=== PATIENT | male | born 1985 | race Caucasian/White ===

== ENCOUNTER 2018-04-17 18:58 | Emergency (ER) | payer OTHER ==
[~2018-04-17] VITALS: Ht 182.9 cm; Wt 95.3 kg
[~2018-04-17 18:58] MED LIST: NORCO 5-325 TA1 EACH PO; PROMETHAZINE12.5 M1 PO
[2018-04-17 19:34] LABS: ABSOLUTE EOSINOPHILS 0.6 thou/uL (0.0-0.7); ABSOLUTE MONOCYTES 0.5 thou/uL (0.0-1.2); ABSOLUTE NEUTROPHILS 5.8 thou/uL (1.6-8.1); BASOPHILS 0.4 %; EOSINOPHILS 6.9 %; HEMATOCRIT 45.7 % (42.0-52.0); HEMOGLOBIN 15.9 gm/dL (14.0-18.0); LYMPHOCYTES 22.5 %; MCH 31.4 pg (26.0-34.0); MCHC 34.7 g/dL (28.0-37.0); MCV 90.5 fL (80.0-100.0); MONOCYTES 5.3 %; MPV 8.4 fl. (7.2-11.1); NUCLEATED RBCS 0 /100WBC; PLATELET COUNT* 292 thou/uL (150-400); POLYS 64.9 %; RBC 5.05 mil/uL (4.50-6.00); RDW-CV 13.3 % (10.5-14.5); WBC 8.9 thou/uL (4.0-11.0)
[2018-04-17 19:41] LABS: ANION GAP 9 mmol/L (7-16); BUN 18 mg/dL (7-18); CALCIUM 8.9 mg/dL (8.5-10.1); CHLORIDE 105 mmol/L (98-107); CO2 28 mmol/L (21-32); CREATININE 1.4 mg/dL (0.6-1.3); GLUCOSE 96 mg/dL (70-99); POTASSIUM 3.3 mmol/L (3.5-5.1); SODIUM 142 mmol/L (136-145)
[2018-04-17 19:53] LABS: ALKALINE PHOSPHATASE 96 U/L (46-116); NT-PRO BRAIN NAT PEPTIDE 69 pg/mL (<300); SGOT 18 U/L (15-37); SGPT 24 U/L (30-65); TOTAL BILIRUBIN 0.6 mg/dL (<0.1-1.0); TOTAL PROTEIN 7.9 g/dL (6.4-8.2); TROPONIN-I LEVEL <0.06 ng/mL (<0.06)
[2018-04-17] MEDS ORDERED: VENTOLIN HFA 1818 GM INH (21:19)
[2018-04-17] MEDS ORDERED: ZPAK PO (21:19)
[2018-04-17 21:31] VITALS: BP 140/89
--- NOTE | 2018-04-18 17:03 | EKG ---
[place] [address] ELECTROCARDIOGRAM REPORT Name: TANG HO Room: [facility]#: [id number] Admission: 04/17/18 Attend Phys: Discharge: 04/17/18 Date of : 81 Report #: [id number] THIS REPORT FOR: //name// [facility] ED Test Date: 2018-04-17 Test Time: 19:08:04 Pat Name: TANG HO Department: Room: Gender: M Integrated Marketing Manager: : 1985 Requested By: Alfred Ba Order Number: [id number] MD: Se Gomez Measurements Intervals [place] Rate: 67 P: 9 [place]: 132 QRS: -25 QRSD: 98 T: 64 QT: 388 QTc: 410 Interpretive Statements Sinus rhythm Borderline left axis deviation Baseline wander in lead(s) II,III,aVF,V1 No previous ECG available for comparison Electronically Signed On 04-18-2018 17:03:34 CDT by Se Gomez [email or web address] <ELECTRONICALLY SIGNED> By: Se Gomez MD, [facility] 04/18/18 1703 07 07 Se Gomez MD, FACC /EPI
== END 2018-04-17 21:32 | disposition home or self-care (01) ==
LOC: M.ERS 18:58
PROVIDERS: Emergency Medicine Emergency Medical Services
DX: J40 Bronchitis, not specified as acute or chronic (principal); Z87.891 Personal history of nicotine dependence; Z88.8 Allergy status to other drugs, medicaments and biological substances; Z91.012 Allergy to eggs

== ENCOUNTER 2018-08-27 11:03 | Emergency (ER) | payer OTHER ==
[~2018-08-27] VITALS: Ht 185.4 cm; Wt 95.3 kg
[~2018-08-27 11:03] MED LIST changes: +VENTOLIN HFA 1818 GM INH; +ZPAK PO
[2018-08-27] MEDS ORDERED: NOHOMEMEDICATIONS (11:13)
[2018-08-27 11:34] LABS: ABSOLUTE BASOPHILS 0.1 thou/uL (0.0-0.2); ABSOLUTE EOSINOPHILS 0.2 thou/uL (0.0-0.7); ABSOLUTE LYMPHOCYTES 1.5 thou/uL (0.8-5.3); ABSOLUTE MONOCYTES 0.3 thou/uL (0.0-1.2); ABSOLUTE NEUTROPHILS 2.9 thou/uL (1.6-8.1); BASOPHILS 1.4 %; EOSINOPHILS 3.8 %; HEMATOCRIT 46.8 % (42.0-52.0); HEMOGLOBIN 16.1 gm/dL (14.0-18.0); LYMPHOCYTES 30.2 %; MCH 31.2 pg (26.0-34.0); MCHC 34.5 g/dL (28.0-37.0); MCV 90.5 fL (80.0-100.0); MONOCYTES 6.7 %; MPV 8.6 fl. (7.2-11.1); NUCLEATED RBCS 0 /100WBC; PLATELET COUNT* 248 thou/uL (150-400); POLYS 57.9 %; RBC 5.17 mil/uL (4.50-6.00); RDW-CV 13.5 % (10.5-14.5)
[2018-08-27 11:42] LABS: CALCIUM 8.9 mg/dL (8.5-10.1); CREATININE 1.4 mg/dL (0.6-1.3); POTASSIUM 3.7 mmol/L (3.5-5.1)
[2018-08-27 11:46] LABS: ALBUMIN 3.9 g/dL (3.4-5.0); TOTAL BILIRUBIN 0.4 mg/dL (<0.1-1.0); TOTAL PROTEIN 7.4 g/dL (6.4-8.2)
[2018-08-27 12:49] LABS: URINE BILIRUBIN NEGATIVE (Negative); URINE BLOOD 3+ (Negative); URINE CLARITY CLEAR; URINE COLOR YELLOW; URINE GLUCOSE-RANDOM NEGATIVE (Negative); URINE KETONES NEGATIVE (Negative); URINE LEUKOCYTES-REFLEX NEGATIVE (Negative); URINE NITRITE-REFLEX NEGATIVE (Negative); URINE PROTEIN NEGATIVE (Negative); URINE SPECIFIC GRAVITY 1.025 (1.005-1.030); URINE UROBILINOGEN 0.2 E.U./dl (0.2-1.0)
[2018-08-27] MEDS ORDERED: NORCO 5-325 TA1 EAC1 PO (12:52)
[2018-08-27] MEDS ORDERED: ZOFRAN4 MG PO (12:52)
[2018-08-27] MEDS ORDERED: FLOMAX0.4 MG PO (12:52)
[2018-08-27] MEDS ORDERED: NAPROSYN500 MG PO (12:52)
[2018-08-27 12:59] LABS: BACTERIA-REFLEX 1-9 Few /HPF (None Seen); CASTS None Seen /LPF (None Seen); CRYSTALS None Seen /LPF (None Seen); MUCUS None Seen strn/LPF (None Seen); SQUAMOUS 0-3 Few /LPF (0-3); URINE RBC >20 Many /HPF (0-2); URINE WBC-REFLEX 0-5 Rare /HPF (0-5)
[2018-08-27 13:20] VITALS: BP 158/105
== END 2018-08-27 13:20 | disposition home or self-care (01) ==
LOC: M.ERS 11:03
PROVIDERS: Nurse Practitioner Family
DX: N20.0 Calculus of kidney (principal); R11.2 Nausea with vomiting, unspecified; J45.909 Unspecified asthma, uncomplicated; Z87.891 Personal history of nicotine dependence; Z88.8 Allergy status to other drugs, medicaments and biological substances; Z91.012 Allergy to eggs; Z87.442 Personal history of urinary calculi

== ENCOUNTER 2020-02-21 12:28 | Emergency (ER) | payer OTHER ==
[~2020-02-21] VITALS: Ht 182.9 cm; Wt 99.8 kg
[~2020-02-21 12:28] MED LIST changes: +FLOMAX0.4 MG PO; +NAPROSYN500 MG PO; +NOHOMEMEDICATIONS; +NORCO 5-325 TA1 EAC1 PO; +ZOFRAN4 MG PO
[2020-02-21] MEDS ORDERED: IBUPROFEN 800800 M1 PO (13:18)
[2020-02-21] MEDS ORDERED: NORCO 5-325 TA1 EAC2 PO (13:18)
[2020-02-21 13:40] VITALS: BP 176/79
== END 2020-02-21 13:41 | disposition home or self-care (01) ==
LOC: M.ERS 12:28
DX: S62.394A Other fracture of fourth metacarpal bone, right hand, initial encounter for closed fracture (principal); S62.396A Other fracture of fifth metacarpal bone, right hand, initial encounter for closed fracture; J45.909 Unspecified asthma, uncomplicated; Z87.442 Personal history of urinary calculi; Z91.012 Allergy to eggs; Z87.891 Personal history of nicotine dependence; Z88.8 Allergy status to other drugs, medicaments and biological substances; W22.8XXA Striking against or struck by other objects, initial encounter; Y93.89 Activity, other specified; Y92.89 Other specified places as the place of occurrence of the external cause; Y99.8 Other external cause status

== ENCOUNTER 2021-03-24 19:23 | Emergency (ER) | payer OTHER ==
[~2021-03-24] VITALS: Ht 182.9 cm; Wt 106.6 kg
[~2021-03-24 19:23] MED LIST changes: +IBUPROFEN 800800 M1 PO; +NORCO 5-325 TA1 EAC2 PO
[2021-03-24 20:18] LABS: ABSOLUTE BASOPHILS 0.1 thou/uL (0.0-0.2); ABSOLUTE EOSINOPHILS 0.5 thou/uL (0.0-0.7); ABSOLUTE LYMPHOCYTES 2.2 thou/uL (0.8-5.3); ABSOLUTE MONOCYTES 0.4 thou/uL (0.0-1.2); ABSOLUTE NEUTROPHILS 4.9 thou/uL (1.6-8.1); BASOPHILS 1.5 %; EOSINOPHILS 5.6 %; HEMATOCRIT 47.4 % (42.0-52.0); HEMOGLOBIN 16.2 gm/dL (14.0-18.0); LYMPHOCYTES 26.9 %; MCH 30.6 pg (26.0-34.0); MCHC 34.2 g/dL (28.0-37.0); MCV 89.5 fL (80.0-100.0); MONOCYTES 4.9 %; MPV 8.3 fl. (7.2-11.1); NUCLEATED RBCS 0 /100WBC; PLATELET COUNT* 274 thou/uL (150-400); POLYS 61.1 %; RBC 5.29 mil/uL (4.50-6.00); RDW-CV 12.9 % (10.5-14.5); WBC 8.1 thou/uL (4.0-11.0)
[2021-03-24 20:25] LABS: URINE BILIRUBIN NEGATIVE (Negative); URINE BLOOD NEGATIVE (Negative); URINE CLARITY CLEAR; URINE COLOR YELLOW; URINE GLUCOSE-RANDOM NEGATIVE (Negative); URINE KETONES NEGATIVE (Negative); URINE LEUKOCYTES-REFLEX NEGATIVE (Negative); URINE NITRITE-REFLEX NEGATIVE (Negative); URINE PROTEIN NEGATIVE (Negative); URINE SPECIFIC GRAVITY 1.025 (1.005-1.030); URINE UROBILINOGEN 0.2 E.U./dl (0.2-1.0)
[2021-03-24 20:25] LABS: CALCIUM 8.7 mg/dL (8.5-10.1); CREATININE 1.4 mg/dL (0.6-1.3); POTASSIUM 3.9 mmol/L (3.5-5.1)
[2021-03-24 20:30] LABS: ALBUMIN 4.2 g/dL (3.4-5.0); TOTAL BILIRUBIN 0.4 mg/dL (<0.1-1.0); TOTAL PROTEIN 7.8 g/dL (6.4-8.2)
[2021-03-24] MEDS ORDERED: PROAIR HFA8.5 GM INH (21:11)
[2021-03-24] MEDS ORDERED: MEDROLDOSEPACK PO (21:11)
[2021-03-24] MEDS ORDERED: HYDROCHLOROTH12.5 M2 PO (21:11)
[2021-03-24] MEDS ORDERED: LISINOPRIL5 MG PO (21:11)
[2021-03-24 22:09] VITALS: BP 144/102
--- NOTE | 2021-03-25 17:04 | EKG ---
[place] [address] ELECTROCARDIOGRAM REPORT Name: TANG HO Room: [facility]#: [id number] Admission: 03/24/21 Attend Phys: Discharge: 03/24/21 Date of : 81 Date of Service: 03/24/211936 Report #: [id number] THIS REPORT FOR: //name// [facility] ED Test Date: 2021-03-24 Test Time: 19:37:36 Pat Name: TANG HO Department: Room: Gender: Medication Administration Professional: : 1985 Requested By: Gissel Bell Order Number: [id number] MD: Raul Hurley Measurements Intervals [place] Rate: 69 P: 7 [place]: 149 QRS: -20 QRSD: 98 T: 63 QT: 404 QTc: 433 Interpretive Statements Sinus rhythm Borderline left axis deviation Compared to ECG 04/17/2018 19:08:04 No significant changes Electronically Signed On 03-25-2021 17:03:54 CDT by Raul Hurley [email or web address] <ELECTRONICALLY SIGNED> By: Raul Hurley MD, [facility] 03/25/21 1703 36 36 Raul Hurley MD, [facility] /EPI
== END 2021-03-24 22:10 | disposition home or self-care (01) ==
LOC: M.ERS 19:23
PROVIDERS: Personal Emergency Response Attendant
DX: I16.0 Hypertensive urgency (principal); Z20.822 Contact with and (suspected) exposure to COVID-19; J98.01 Acute bronchospasm; F12.90 Cannabis use, unspecified, uncomplicated; Z87.442 Personal history of urinary calculi; Z79.1 Long term (current) use of non-steroidal anti-inflammatories (NSAID); Z79.891 Long term (current) use of opiate analgesic; Z91.012 Allergy to eggs; Z91.018 Allergy to other foods; Z87.891 Personal history of nicotine dependence

== ENCOUNTER 2021-06-30 08:00 | Emergency (ER) | payer OTHER ==
[~2021-06-30] VITALS: Ht 182.9 cm; Wt 113.4 kg
[~2021-06-30 08:00] MED LIST changes: +HYDROCHLOROTH12.5 M2 PO; +LISINOPRIL5 MG PO; +MEDROLDOSEPACK PO; +PROAIR HFA8.5 GM INH
[2021-06-30] MEDS ORDERED: PREDNISONE 20 M20 M1 PO (08:35)
[2021-06-30] MEDS ORDERED: VENTOLIN HFA 1818 GM INH (08:35)
[2021-06-30] MEDS ORDERED: FLOVENT HFA 4444 MCG INH (08:35)
[2021-06-30 09:06] VITALS: BP 151/107
== END 2021-06-30 09:08 | disposition home or self-care (01) ==
LOC: M.ERS 08:00
DX: J45.901 Unspecified asthma with (acute) exacerbation (principal); Z20.822 Contact with and (suspected) exposure to COVID-19; Z87.891 Personal history of nicotine dependence; Z91.012 Allergy to eggs

== ENCOUNTER 2021-08-06 12:01 | Emergency (ER) | payer OTHER ==
[~2021-08-06] VITALS: Ht 182.9 cm; Wt 106.6 kg
[~2021-08-06 12:01] MED LIST changes: +FLOVENT HFA 4444 MCG INH; +PREDNISONE 20 M20 M1 PO
--- NOTE | 2021-08-06 13:43 | EKG ---
[place] [address] ELECTROCARDIOGRAM REPORT Name: TANG HO Room: [facility]#: [id number] Admission: 08/06/21 Attend Phys: Discharge: Date of : 81 Date of Service: 08/06/21 1212 Report #: [id number] THIS REPORT FOR: //name// [facility] ED Test Date: 2021-08-06 Test Time: 12:12:49 Pat Name: TANG BYRDELLI Department: Room: Gender: Patient Service Technician Pst: : 1985 Requested By: Francesca Beltran Order Number: [id number] MD: Se Gomez Measurements Intervals [place] Rate: 77 P: 41 [place]: 130 QRS: -13 QRSD: 99 T: 73 QT: 400 QTc: 453 Interpretive Statements Sinus rhythm ST elev, probable normal early repol pattern Compared to ECG 03/24/2021 19:37:36 ST (T wave) deviation now present Electronically Signed On 08-06-2021 13:42:46 MATERIAL ATTENDANT by Se Gomez [email or web address] <ELECTRONICALLY SIGNED> By: Se Gomez MD, FACC 08/06/21 1342 1212 1212 Se Gomez MD, FAC /EPI
[2021-08-06 13:49] LABS: ABSOLUTE BASOPHILS 0.1 thou/uL (0.0-0.2); ABSOLUTE EOSINOPHILS 0.5 thou/uL (0.0-0.7); ABSOLUTE LYMPHOCYTES 2.2 thou/uL (0.8-5.3); ABSOLUTE MONOCYTES 0.4 thou/uL (0.0-1.2); ABSOLUTE NEUTROPHILS 4.8 thou/uL (1.6-8.1); BASOPHILS 0.9 %; EOSINOPHILS 6.7 %; HEMATOCRIT 49.1 % (42.0-52.0); HEMOGLOBIN 17.3 gm/dL (14.0-18.0); LYMPHOCYTES 27.4 %; MCH 30.6 pg (26.0-34.0); MCHC 35.3 g/dL (28.0-37.0); MCV 86.9 fL (80.0-100.0); MPV 7.7 fl. (7.2-11.1); NUCLEATED RBCS 0 /100WBC; PLATELET COUNT* 320 thou/uL (150-400); RBC 5.66 mil/uL (4.50-6.00); RDW-CV 12.9 % (10.5-14.5)
[2021-08-06 13:58] LABS: CALCIUM 9.1 mg/dL (8.5-10.1); CREATININE 1.2 mg/dL (0.6-1.3); POTASSIUM 3.8 mmol/L (3.5-5.1)
[2021-08-06 14:10] LABS: ALBUMIN 3.9 g/dL (3.4-5.0); TOTAL BILIRUBIN 0.3 mg/dL (<0.1-1.0)
[2021-08-06] MEDS ORDERED: VENTOLIN HFA 1818 GM INH (14:36)
[2021-08-06] MEDS ORDERED: MEDROLDOSEPACK PO (14:36)
[2021-08-06] MEDS ORDERED: ADVAIR 250-501 EACH INH (14:36)
[2021-08-06] MEDS ORDERED: HYDROCHLOROTH12.5 M2 PO (14:36)
[2021-08-06] MEDS ORDERED: LISINOPRIL10 MG PO (14:36)
[2021-08-06 15:30] VITALS: BP 174/110
== END 2021-08-06 15:30 | disposition home or self-care (01) ==
LOC: M.ERS 12:01
PROVIDERS: Nurse Practitioner Family
DX: J45.901 Unspecified asthma with (acute) exacerbation (principal); I10 Essential (primary) hypertension; Z87.442 Personal history of urinary calculi; Z79.899 Other long term (current) drug therapy; Z88.8 Allergy status to other drugs, medicaments and biological substances; Z91.012 Allergy to eggs; Z87.891 Personal history of nicotine dependence